=== PATIENT | male | born 1995 | race Caucasian/White ===

== ENCOUNTER 2024-10-07 20:57 | Emergency (ER) | payer OTHER ==
[2024-10-07 21:20] VITALS: TEMP 98.6
[2024-10-07] MEDS: Acetaminophen-Codeine 300-30mg TAB PO STA ×2 (21:56→23:39)
[2024-10-07] MEDS: KETOROLAC 15 MG/ML 1 ML VIAL IM STA (21:56)
--- NOTE | 2024-10-07 21:58 | XR ---
EXAMINATION TYPE: XR forearm RT DATE OF EXAM: 10/07/2024 9:53 PM INDICATION: Patient age:Male; 29 years old; Reason for study: pain; [facility]. pain COMPARISON: None TECHNIQUE: The right forearm was examined in AP and lateral projections. FINDINGS: Acute posterior elbow dislocation without fracture. Overlying soft tissue swelling. No dis crete joint effusion identified. No radiopaque foreign body. IMPRESSION: Acute posterior elbow dislocation without fracture. [facility], , 10/07/2024 9:56 PM
[2024-10-07 23:46] VITALS: BP 135/89; PULSE 72; RESP 16
--- NOTE | 2024-10-07 23:53 | XR ---
EXAMINATION TYPE: XR elbow limited RT DATE OF EXAM: 10/07/2024 11:42 PM INDICATION: Patient age:Male; 29 years old; Reason for study: post reduction; [facility]. pain COMPARISON: Right forearm radiograph of the same date TECHNIQUE: The right elbow was examined in single lateral projection. FINDINGS: Reduction of previously demonstrated posterior elbow dislocation now in anatomic alignment. No discrete elbow joint effusion identified. No acute fracture. No soft tissue swelling. IMPRESSION: Reduction of previously demonstrated posterior elbow dislocation now in anatomic alignment. No acute fracture. [facility], , 10/07/2024 11:51 PM
--- NOTE | 2024-10-08 00:07 | ED ---
General Adult HPI - General Chief complaint: Extremity Injury, Upper Stated complaint: fall arm injury Time Seen by Provider: 10/07/24 21:30 Source: patient, family, RN notes reviewed, old records reviewed Mode of arrival: ambulatory Limitations: no limitations - History of Present Illness Initial comments: Patient is a 29-year-old male who presents emergency department after a fall. Patient was helping a DJ out when he fell off the back of a truck and broke his fall with an outstretched right arm. [place] something shift in his elbow and now cannot move his elbow. Unknown if he fractured or dislocated it. Denies any other obvious injuries. Denies headaches. Denies head injury. Today is not on blood thinners. Not lose consciousness. Ambulates without issue. No back pain or abdominal pain or chest pain. Presents for further evaluation at this time. - Related Data Allergies Allergy/AdvReac Type Severity Reaction Status Date / Time No Known Allergies Allergy Verified 10/07/24 21:19 Review of Systems ROS Statement: Those systems with pertinent positive or pertinent negative responses have been documented in the HPI. Review of Systems: CONST: Denies fever EYES: Denies blurry vision ENT: Denies nasal congestion C/V: Denies Chest pain RESP: Denies shortness of breath GI: Denies abdominal pain : Denies dysuria SKIN: Denies rash. MSK: Endorses right elbow pain NEURO: Denies headache ROS Other: All systems not noted in ROS Statement are negative. Past Medical History Past Medical History: No Reported History History of Any Multi-Drug Resistant Organisms: None Reported Past Surgical History: No Surgical Hx Reported Past Psychological History: No Psychological Hx Reported Smoking Status: Never smoker Past Alcohol Use History: Occasional Past Drug Use History: None Reported General Exam - General Exam Comments Initial Comments: General: Appears in no acute distress. HEAD: Normal with no signs of head trauma. EYES: EOMI. ENT: Hearing grossly intact. RESPIRATORY: No respiratory distress. C/V: Regular rate and rhythm. ABD: Abdomen is nondistended. EXT: Obvious deformity of the right elbow. Decreased range of motion. Neurovasc intact. No forearm, shoulder injury. No hand injury. SKIN: No rashes or lesions observed on exposed skin. NEURO: Alert and oriented. Limitations: no limitations Course Vital Signs 10/07/24 10/07/24 21:18 23:46 Temperature 98.6 F Pulse Rate 66 72 Respiratory 18 16 Rate Blood Pressure 163/101 135/89 O2 Sat by Pulse 98 97 Oximetry Medical Decision Making - Medical Decision Making Was pt. sent in by a medical professional or institution ([facility]E Rios, ASSISTANT SHIFT SUPERVISOR, urgent care, hospital, or snf...) When possible be specific @ -No Did you speak to anyone other than the patient for history (EMS, parent, family, police, friend...)? What history was obtained from this source @ -No Did you review nursing and triage notes (agree or disagree)? Why? @ -I reviewed and agree with nursing and triage notes Were old charts reviewed (outside hosp., previous admission, EMS record, old EKG, old radiological studies, urgent care reports/EKG's, snf records)? Report findings @ -No old charts were reviewed Differential Diagnosis (chest pain, altered mental status, abdominal pain women, abdominal pain men, vaginal bleeding, weakness, fever, dyspnea, syncope, headache, dizziness, GI bleed, back pain, seizure, CVA, palpatations, mental health, musculoskeletal)? @ -Right elbow fracture, right elbow dislocation, right elbow sprain. This list is not all-inclusive. EKG interpreted by me (3pts min.). @ -None done X-rays interpreted by me (1pt min.). @ -Initial x-ray shows posterior right elbow dislocation. Postreduction x-ray shows successful reduction of the dislocation. CT interpreted by me (1pt min.). @ -None done U/S interpreted by me (1pt. min.). @ -None done What testing was considered but not performed or refused? (CT, X-rays, U/S, labs)? Why? @ -None What meds were considered but not given or refused? Why? @ -None Did you discuss the management of the patient with other professionals (professionals i.e. MAE Rios, ASSISTANT SHIFT SUPERVISOR, lab, RT, psych nurse, marriage and family social worker, real estate lawyer, t eacher, senior credit officer, case checker)? Give summary @ -No Was smoking cessation discussed for >3mins.? @ -No Was critical care preformed (if so, how long)? @ -No Were there social determinants of health that impacted care today? How? (Homelessness, low income, unemployed, alcoholism, drug addiction, transportation, low edu. Level, literacy, decrease access to med. care, [facility], rehab)? @ -No Was there de-escalation of care discussed even if they declined (Discuss DNR or withdrawal of care, Hospice)? DNR status @ -No What co-morbidities impacted this encounter? (DM, HTN, Smoking, COPD, CAD, Cancer, CVA, ARF, Chemo, Hep., AIDS, mental health diagnosis, sleep apnea, morbid obesity)? @ -None Was patient admitted / discharged? Hospital course, mention meds given and route, prescriptions, significant lab abnormalities, going to OR and other pertinent info. @ -Presents with right elbow dislocation seen on initial x-ray. Vitals within acceptable limits. This was from a fall. No other obvious injuries. Patient administered analgesia medications. Successful reduction using traction countertraction. Did not require procedural sedation. Postreduction x-ray shows successful reduction. Patient placed in a sling and given orthopedic follow-up. He will be discharged home at this time with Tylenol 3 starter pack. Patient's mother and patient are in agreement with this plan. I instructed the patient to follow up with their PCP in the next 1-3 days. I provided contact information for follow up with orthopedics. I explained that the patient should return to the emergency department if they experience any worsening symptoms. Strict return precautions were discussed with the patient. The patient expressed understanding of these instructions. I answered all questions that the patient had. The patient was discharged home in good condition with their prescriptions and follow up information. Undiagnosed new problem with uncertain prognosis? @ -No Drug Therapy requiring intensive monitoring for toxicity (Heparin, Nitro, Insulin, Cardizem)? @ -No Were any procedures done? @ -Dislocation reduction of the right elbow Diagnosis/symptom? @ -Fall, posterior right elbow dislocation Acute, or Chronic, or Acute on Chronic? @ -Acute Uncomplicated (without systemic symptoms) or Complicated (systemic symptoms)? @ -Uncomplicated Side effects of treatment? @ -No Exacerbation, Progression, or Severe Exacerbation? @ -No Poses a threat to life or bodily function? How? (Chest pain, [place], [place], pneumonia, PE, COPD, DKA, ARF, appy, cholecystitis, CVA, Diverticulitis, Homicidal, Suicidal, threat to staff... and all critical care pts) @ -Unlikely at this time Disposition Clinical Impression: Dislocation of elbow, right, closed, Fall Disposition: HOME SELF-CARE Condition: Good Instructions (If sedation given, give patient instructions): Elbow Dislocation (ED) Is patient prescribed a controlled substance at d/c from ED?: No Referrals: None,Stated [Primary Care Provider] - 1-2 days Golden Juárez MD [Medical Doctor] - 1-2 days Forms: PH Area PCPs Time of Disposition: 00:06
[2024-10-08] MEDS: ACET/COD 300 MG/30 MG STARTER PACK 6 TAB BTL PO STA (00:11)
== END 2024-10-08 00:17 | disposition home or self-care (01) ==
LOC: EEVIPCON 20:57 → EC 20:57
DX: S53.104A Unspecified dislocation of right ulnohumeral joint, initial encounter (principal); W19.XXXA Unspecified fall, initial encounter
CPT/HCPCS: 73070; 73090; 99283; 24600; 96372; J1885